=== PATIENT | female | born 1995 | race Caucasian/White ===

== ENCOUNTER 2020-09-11 15:21 | Inpatient (IN) | payer BC, SELFPAY ==
[2020-09-11] VITALS (15 sets, daily range): BP systolic 132–174; BP diastolic 64–108; PULSE 76–85; RESP 16–20; TEMP 36.4–37.6; O2SAT 97–100; BMI 45.2
--- NOTE | ~2020-09-11 | XR_ITS ---
EXAMINATION: 09/14/2020 14:57 DATE: 09/14/2020 15:30 CDT INDICATION: Cholecystectomy, intraoperative cholangiogram TECHNIQUE: Intraoperative cholangiogram with a single contrast run(s) provided for review. 18 seconds of fluoroscopy. 114 images. FINDINGS: There is cannulation and contrast administration into the cystic duct remnant. The common bile duct is mildly prominent, although no obstructing filling defect is seen. There is no discrete filling defect in the common bile duct to suggest common bile duct stone. Contrast flows freely into the duodenum. There is normal filling of the pancreatic duct. IMPRESSION: 1. Patent cystic duct remnant and common bile duct, without common bile duct stone. Reviewed, dictated and finalized at location B. IMPRESSION: 1. Patent cystic duct remnant and common bile duct, without common bile duct s tone.
--- NOTE | ~2020-09-11 | US_ITS ---
US abdomen limited INDICATION: Abdominal pain PROCEDURE: Realtime right upper abdominal ultrasound. COMPARISON: No prior studies for comparison. FINDINGS: The pancreas is normal without focal mass or pancreatic ductal dilation. Liver echotexture is normal without focal mass or intrahepatic biliary dilatation. There is normal directional flow i n the portal vein. There are gallstones with gallbladder wall thickening. Common bile duct measures 9 mm. No sonograph ic Reynoso's sign. IMPRESSION: 1: Cholelithiasis with gallbladder wall thickening and mild biliary dilatation. Findings compatible w ith cholecystitis. Clinically correlate. Reviewed, dictated and finalized at location B. IMPRESSION: 1: Cholelithiasis with gallbladder wall thickening and mild biliary dilatation. Findings compatible with cholecystitis. Clinically correlate.
--- NOTE | ~2020-09-11 | MR_ITS ---
EXAMINATION: MR MRCP wo/w con/w 3D wo ind DATE: 09/12/2020 14:35 INDICATION: Pancreatitis. TECHNIQUE: Magnetic resonance imaging (MRI) of the abdomen was performed without and with 20 mL Multi Sebastián intravenous contrast. Sequences included coronal T2-weighted FS FSE, coronal T2-weighted FSE, a xial T1-weighted LAVA, coronal FS FIESTA, axial dual-echo T1-weighted SPGR, coronal lava-FLEX, sagitt al T2-weighted FSE, axial T2-weighted FSE, and axial DWI. Thick-slab T2-weighted FSE images were obta ined for magnetic resonance cholangiopancreatography (MRCP). Maximum intensity projection 3-D reconst ructions of the volumetric data were created by the technologist. Postcontrast sequences included cor onal LAVA-flex and time course of axial T1-weighted LAVA. COMPARISON: Ultrasound 09/12/2020, CT abdomen and pelvis 09/11/2020 FINDINGS: ABDOMEN MRI: There is mild intrahepatic biliary duct dilatation. There are gallstones in the gallblad amelia, which is distended. Gallbladder wall thickening is noted. The spleen is normal. There is mild ed jeffry in the retroperitoneum centered at the pancreas, consistent with acute interstitial pancreatitis. There is a 7 mm cystic lesion in the tail of the pancreas. The adrenal glands and left kidney are no rmal. There are cysts in right kidney measuring up to 12 mm. There are no dilated loops of bowel. The re are no pathologically enlarged lymph nodes. There is trace pelvic ascites. ABDOMEN MRCP: The common duct is dilated to 12 mm. IMPRESSION: 1. Intrahepatic and extrahepatic biliary duct dilatation. No visible choledocholithiasis. 2. Distended gallbladder with gallstones and gallbladder wall thickening, consistent with acute gisel cystitis. 3. Acute interstitial pancreatitis. Reviewed, dictated and finalized at location A. IMPRESSION: 1. Intrahepatic and extrahepatic biliary duct dilatation. No visible choledocho lithiasis. 2. Distended gallbladder with gallstones and gallbladder wall thickening, consi stent with acute cholecystitis. 3. Acute interstitial pancreatitis.
--- NOTE | ~2020-09-11 | CT_ITS ---
EXAMINATION: CT abdomen pelvis w con DATE: 09/11/2020 19:45 INDICATION: Upper abdominal pain. Nausea. Diarrhea. TECHNIQUE: Computed tomography (CT) of the abdomen and pelvis was performed with 100 mL Omnipaque 350 intravenous contrast. Automated exposure control and iterative reconstruction technique were employe d. The dose-length product was 1429.70 mGy-cm. COMPARISON: None. FINDINGS: The visualized portions of the lung bases are clear without pneumonia or pleural effusion. The heart size is normal. No pericardial effusion. There is moderate intrahepatic biliary duct dilata tion. The common duct is dilated to 10 mm. There are gallstones in the gallbladder, which is normal i n size. There is fat stranding around the pancreas, consistent with acute interstitial pancreatitis. The spleen, adrenal glands, and left kidney are normal. There are cysts in right kidney measuring up to 12 mm. There are no dilated loops of bowel. The appendix is normal. There are no pathologically en larged lymph nodes. There is no free intraperitoneal fluid. There is an umbilical hernia containing f at. There is mild thoracolumbar spondylosis. IMPRESSION: 1. Acute interstitial pancreatitis. 2. Intrahepatic and extrahepatic biliary duct dilatation. 3. Cholelithiasis. Reviewed, dictated and finalized at location A.
[2020-09-11 16:42] LABS: Basophils Percent Auto 0.4 % (0.2-1.2); Eosinophils Absolute Auto 0.1 K/mm3 (0-0.3); Eosinophils Percent Auto 0.7 % (0-4.4); Hematocrit 38.2 % (37.0-47.0); Hemoglobin 12.3 g/dL (12.0-15.0); Immature Granulocyte Absolute 0.02 K/mm3 (0.00-0.031); Immature Granulocyte Percent A 0.3 % (0-0.5); Lymphocytes Absolute Auto 1.72 K/mm3 (0.9-3.2); Lymphocytes Percent Auto 24.4 % (18.3-44.2); Mean Corpuscular HGB Conc 32.2 g/dl (32-36); Mean Platelet Volume 10.1 fl (7.4-10.4); Monocytes Absolute Auto 0.4 K/mm3 (0.1-0.6); Monocytes Percent Auto 5.5 % (2.6-8.5); Neutrophils Absolute Auto 4.8 K/mm3 (1.3-6.7); Neutrophils Percent Auto 68.7 % (45.5-73.1); Platelet Count Result 223 k/mm3 (150-375); Red Blood Count 4.39 M/mm3 (4.2-5.4)
[2020-09-11 16:54] LABS: Alanine Aminotransferase 506 U/L (4-35); Albumin Level 4.1 g/dL (3.5-5.1); Alkaline Phosphatase 269 U/L (38-126); Anion Gap 7 mmol/L (8-16); Aspartate Amino Transferase 296 U/L (14-36); Bilirubin,Total 4.7 mg/dL (0.2-1.3); Blood Urea Nitrogen 10 mg/dL (7-17); Calcium 9.1 mg/dL (8.4-10.2); Carbon Dioxide 26 mmol/L (22-30); Chloride 105 mmol/L (98-107); Estimated Glomerular Filt Rate > 60; Glucose 150 mg/dL (65-105); Potassium 3.5 mmol/L (3.4-5.0); Sodium 138 mmol/L (137-145)
[2020-09-11 17:44] LABS: Lipase 11875 U/L (23-300)
[2020-09-11 19:45] LABS: Add Urine Microscopic? YES; Appearance Urine Clear (Clear); Bacteria Urine Trace /hpf; Bilirubin Urine 2+ (Negative); Blood Urine 1+ (Negative); Color Urine Amber (Yellow); Glucose Urine UA Negative (Negative); Ketones Urine Negative (Negative); Leukocyte Esterase Ur Negative LEU/UL (Negative); Mucus Urine Heavy /lpf; Nitrate Urine Negative (Negative); Protein Urine 1+ mg/dL (Negative); RBC Urine 0-2 /hpf (0-2); Squamous Epithelial Cell Urine Many /hpf (Few)
[2020-09-11 19:47] LABS: Specific Grav Ur 1.031 (1.001-1.035)
[2020-09-11] MEDS: ONDANSETRON INJ 4 MG/2 ML VIAL IV PUSH (19:56)
[2020-09-11] MEDS: MORPHINE SULFATE (*CRX) 4 MG/ML INJ IV PUSH (19:58)
[2020-09-11] MEDS: SODIUM CHLORIDE 0.9% IV 1,000 ML 999 ML IV CONT (20:00)
--- NOTE | 2020-09-11 20:29 | ED.GENADULT ---
HPI - General Adult General Chief complaint: Abdominal Pain Stated complaint: abd pain, n/d few weeks Time Seen by Provider: 09/11/20 19:13 History of Present Illness HPI narrative: Patient is a 25-year-old female who presents ER with epigastric pain. Ongoing for the last several days. Worse with eating and drinking. Associate with nausea and vomiting but no diarrhea. Noticed today that her urine was becoming darker in color. No difficulty urinating or having burning/frequent urination. Denies fevers or chills or sweats. No alleviating factors. Believes she is fully immunized. No IV drug use. Related Data Home Medications Medication Instructions Recorded Confirmed norethindrone-e.estradiol-iron tablet 09/11/20 [Blisovi 24 Fe] Allergies Allergy/AdvReac Type Severity Reaction Status Date / Time No Known Allergies Allergy Verified 09/11/20 19:54 Review of Systems Review of Systems: All systems reviewed & are unremarkable except as noted in HPI and below Constitutional: Constitutional: Denies chills, Denies fever(s) and Denies weakness Cardiovascular: Cardiovascular: Denies chest pain and Denies radiating jaw, neck or arm pain Respiratory: Respiratory: Denies cough, Denies dyspnea and Denies wheezing Gastrointestinal: Gastrointestinal: Reports abdominal pain, Denies constipation, Denies diarrhea, Reports nausea and Reports vomiting Genitourinary: Genitourinary: Denies nocturia and Denies dysuria Comments: Discolored urine PMFSH Past Medical History Medical History (Updated 09/11/20 @ 21:29 by Chema Jerome MD) Healthy female adult Surgical History Surgical History (Updated 09/11/20 @ 20:31 by Chema Jerome MD) No pertinent past surgical history Social History Social History Gender identity (if verbalized by the patient): Female Exam Narrative: Exam Narrative: GENERAL: Well-appearing, well-nourished, and in no acute distress. HEAD: Normocephalic, atraumatic. EYES: PERRL and EOMI. scleral icterus CHEST: Clear to auscultation. No respiratory distress. HEART: Regular rate and rhythm. Normal peripheral pulses. ABDOMEN: Soft, mild right upper quadrant and epigastric tenderness without guarding, nondistended. EXTREMITIES: Normal range of motion. No edema. SKIN: Warm, dry, very faint jaundice. NEURO: Alert and oriented x3. PSYCH: Normal mood and affect. Course Course Emergency Course: Admit to hospitalist service. General surgery and GI consulted and will see the patient. Patient without elevation white blood cell count and no gallbladder wall thickening or pericholecystic fluid so antibiotics will not be started at this time. NPO, may require ERCP tomorrow. Vital Signs Vital signs: Vital Signs Temperature 97.6 F 09/11/20 17:09 Pulse Rate 85 09/11/20 17:09 Respiratory Rate 18 09/11/20 17:09 Blood Pressure 151/104 H 09/11/20 17:09 Pulse Oximetry 97 09/11/20 17:09 Temperature 99.6 F 09/11/20 20:55 Pulse Rate 76 09/11/20 20:31 Respiratory Rate 16 09/11/20 20:31 Blood Pressure 143/93 H 09/11/20 20:31 Pulse Oximetry 100 09/11/20 20:55 Medical Decision Making Vital Signs Vital Signs: Vital Signs Temperature 97.6 F 09/11/20 17:09 Pulse Rate 85 09/11/20 17:09 Respiratory Rate 18 09/11/20 17:09 Blood Pressure 151/104 H 09/11/20 17:09 Pulse Oximetry 97 09/11/20 17:09 Temperature 99.6 F 09/11/20 20:55 Pulse Rate 76 09/11/20 20:31 Respiratory Rate 16 09/11/20 20:31 Blood Pressure 143/93 H 09/11/20 20:31 Pulse Oximetry 100 09/11/20 20:55 Lab Data Result diagrams: 09/11/20 16:34 09/11/20 16:34 Labs: Lab Results 09/11/20 09/11/20 09/11/20 Range/Units 16:34 16:34 19:30 WBC 7.0 (4.5-10.0) K/mm3 RBC 4.39 (4.2-5.4) M/mm3 Hgb 12.3 (12.0-15.0) g/dL Hct 38.2 (37.0-47.0) % MCV 87.0 (80-100) fl MCH 28.0 (26-34) pg MCHC 32.2 (32-36) g/d
--- NOTE | 2020-09-11 23:00 | PM.IMHP ---
H&P: HPI History of Present Illness Date/Time: 09/11/20 23:00 Chief Complaint: Epigastric abdominal pain over the past 2 weeks+ Narrative: This is a previously healthy morbidly obese 25-year-old female who presented to the hospital with a complaint of intermittent epigastric pain over the past 2 weeks. Patient has noticed that she has had worsening epigastric pain that seemed to radiate laterally especially after eating a meal. Today her pain worsened which prompted her to come to the hospital for evaluation. She reports having nausea and vomiting over a week ago but has not had any nausea or vomiting since then. She denies any fevers, chills, chest pain, cough, dysuria, hematuria, diarrhea, or rectal bleeding. The patient was evaluated emergency room this evening and found to have acute pancreatitis on her CT abdomen pelvis. She has no previous history of acute pancreatitis and denies any excessive alcohol intake. Patient's lab results were concerning for cholestatic transaminitis. She has no previous history of gallbladder disease. ER provider has consulted gastroenterology who will evaluate in a.m. on my encounter with the patient tonight she states that her abdominal pain is controlled at this time when she does not move much. She denies any other significant symptoms at this time. Review of Systems Review of Systems: All systems reviewed & are unremarkable except as noted in HPI and below PMFSH Past Medical History Medical History Abdominal pain Cholecystitis Gallstone pancreatitis Healthy female adult Surgical History Surgical History History of sinus surgery History of tonsillectomy Family History Family History Sibling Brain tumor Grandparent Gallbladder disease Social History Social History Smoking status: Never smoker Alcohol intake: current Alcohol use details: Occasional/social. Not daily use. 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 [employer] Gender identity (if verbalized by the patient): Female Sexual Orientation (if Verbalized by the Patient): Straight or Heterosexual Spiritual care concerns: No Meds Home Medications and Allergies Home Medications Medication Instructions Recorded Confirmed Type norethindrone-e.estradiol-iron 1 tablet PO DAILY 09/11/20 09/12/20 History [Blisovi 24 Fe] Allergies Allergy/AdvReac Type Severity Reaction Status Date / Time No Known Allergies Allergy Verified 09/11/20 19:54 Vital Signs Vital Signs - 24 hr 09/11/20 17:09 09/11/20 19:18 09/11/20 19:28 Temperature 36.4 C 37.1 C Pulse Rate 85 78 Respiratory Rate 18 18 Blood Pressure 151/104 H 174/105 H Pulse Oximetry 97 100 99 09/11/20 19:30 09/11/20 19:32 09/11/20 20:01 Temperature Pulse Rate 78 Respiratory Rate 18 Blood Pressure 161/94 H Pulse Oximetry 100 100 100 09/11/20 20:02 09/11/20 20:15 09/11/20 20:18 Temperature Pulse Rate 83 Respiratory Rate 16 Blood Pressure 156/94 H 169/64 H Pulse Oximetry 100 100 100 09/11/20 20:28 09/11/20 20:30 09/11/20 20:31 Temperature 37.6 C Pulse Rate 76 Respiratory Rate 16 Blood Pressure 143/93 H Pulse Oximetry 97 100 09/11/20 20:55 Temperature 37.6 C Pulse Rate Respiratory Rate Blood Pressure Pulse Oximetry 100 Exam Const: General: cooperative, alert and awake Nutritional Appearance: obese morbidly obese Orientation/consciousness: patient oriented x3 HENMT: Head: normal to inspection General nose exam: Normal external nose present Face and sinus: normal facial exam Mouth: Yes Normal ora
--- NOTE | 2020-09-11 23:15 | ADMGEN ---
This patient, Irma Monae, was admitted to [facility] Surg Room 301-01. Patient/family oriented to hospital policies and general routines including ID bracelet, bed and alarms, visiting hours, pain management, procedures, bathroom and other care routines, personal items, smoking policy, room service/diet, and visiting hours. Information on how to activate the Rapid Response Team has been discussed. Patient/Family are encouraged to report perceived risks to care and to ask questions if they do not understand what they are told or what they should do.
[2020-09-11] MEDS: SODIUM CHLORIDE 0.9% IV 1,000 ML 125 ML IV CONT (23:38)
[2020-09-12] MEDS: MORPHINE SULFATE (*CRX) 4 MG/ML INJ IV PUSH (00:36)
[2020-09-12 06:00] VITALS: BP 128/77; PULSE 87; RESP 20; TEMP 37.2; O2SAT 98
[2020-09-12 06:39] LABS: Basophils Percent Auto 0.7 % (0.2-1.2); Eosinophils Absolute Auto 0.1 K/mm3 (0-0.3); Eosinophils Percent Auto 1.4 % (0-4.4); Hematocrit 35.5 % (37.0-47.0); Hemoglobin 11.5 g/dL (12.0-15.0); Immature Granulocyte Absolute 0.01 K/mm3 (0.00-0.031); Immature Granulocyte Percent A 0.2 % (0-0.5); Lymphocytes Absolute Auto 2.05 K/mm3 (0.9-3.2); Lymphocytes Percent Auto 35.6 % (18.3-44.2); Mean Corpuscular HGB Conc 32.4 g/dl (32-36); Mean Corpuscular Hemoglobin 28.5 pg (26-34); Mean Corpuscular Volume 88.1 fl (80-100); Mean Platelet Volume 10.3 fl (7.4-10.4); Monocytes Absolute Auto 0.5 K/mm3 (0.1-0.6); Monocytes Percent Auto 8.7 % (2.6-8.5); Neutrophils Absolute Auto 3.1 K/mm3 (1.3-6.7); Neutrophils Percent Auto 53.4 % (45.5-73.1); Platelet Count Result 207 k/mm3 (150-375); Red Blood Count 4.03 M/mm3 (4.2-5.4); Red Cell Distribution Width 13.2 % (11.5-14.5); White Blood Count 5.8 K/mm3 (4.5-10.0)
[2020-09-12] MEDS: SODIUM CHLORIDE 0.9% IV 1,000 ML 125 ML IV CONT (06:42)
[2020-09-12 06:50] LABS: Alanine Aminotransferase 478 U/L (4-35); Alkaline Phosphatase 261 U/L (38-126)
[2020-09-12 06:53] LABS: Cholesterol 283 mg/dL (0-200); HDL Direct 102 mg/dL; Triglycerides 143 mg/dL (<150)
[2020-09-12 06:54] LABS: Anion Gap 4 mmol/L (8-16); Blood Urea Nitrogen 8 mg/dL (7-17); Calcium 8.5 mg/dL (8.4-10.2); Carbon Dioxide 25 mmol/L (22-30); Chloride 108 mmol/L (98-107); Estimated CRCL calculation 120 ml/min; Estimated Glomerular Filt Rate > 60; Glucose 82 mg/dL (65-105); Magnesium 1.7 mg/dL (1.6-2.3); Potassium 3.8 mmol/L (3.4-5.0); Sodium 137 mmol/L (137-145)
[2020-09-12 07:04] LABS: LDL Cholesterol Direct 118 mg/dL
[2020-09-12 07:28] LABS: Lipase 6552 U/L (23-300)
[2020-09-12] MEDS: ENOXAPARIN 40 MG/0.4 ML SYRINGE SUB-Q (08:59)
[2020-09-12 10:00] VITALS: PULSE 85; O2SAT 97
--- NOTE | 2020-09-12 11:55 | PM.CNGS ---
Assessment and Plan Assessment and plan (1) Acute pancreatitis: Qualifiers: Acute pancreatitis complication: no infection or necrosis Pancreatitis type: biliary Qualified Code(s): K85.10 - Biliary acute pancreatitis without necrosis or infection Code(s): K85.90 - Acute pancreatitis without necrosis or infection, unspecified Status: Acute Assessment and Plan: CT scan and ultrasound reviewed and discussed in detail with the patient and her mother. She has evidence of acute pancreatitis with intrahepatic and extrahepatic biliary ductal dilatation with cholelithiasis. She also was found to have bilirubinuria and transaminitis on labs. GI has been consulted and we will await their recommendations. This appears to be most likely acute biliary pancreatitis. She has no history of alcohol abuse, triglycerides are normal, and she is not taking any medications. We agree to continue the IV fluids, analgesics, and bowel rest to treat the pancreatitis. Her lipase has come down to 6,552 today and she is already clinically improving. With the above findings, there is concern for choledocholithiasis as well. MRCP planned for today. She may need an ERCP if there is evidence of choledocholithiasis. I discussed with her that we would recommend proceeding with a laparoscopic cholecystectomy to avoid future serious complications of the cholelithiasis and recurrent pancreatitis. Due to her morbid obesity, she would be at a higher risk for complications with surgery, therefore timing/planning of surgery will be decided after Dr. Lipscomb's evaluation. We would not plan scheduling surgery until at least after the pancreatitis has resolved and it has been sorted out if she will need an ERCP. Description of the procedure, risks, benefits, indications, expected outcomes, and expected recovery were discussed with the patient in detail. All questions were answered. Thank you for allowing us to see the patient in consultation. We will continue to follow along with you and timing of surgery will depend on how the patient progresses. (2) Cholelithiasis: Code(s): K80.20 - Calculus of gallbladder without cholecystitis without obstruction Status: Acute Assessment and Plan: Gallstones noted on CT and ultrasound this morning. See plan above. (3) Transaminitis: Code(s): R74.01 - Elevation of levels of liver transaminase levels Status: Acute Assessment and Plan: Elevated LFTs on admission, which does raise the concern of choledocholithiasis. GI has been consulted and has ordered an MRCP for today. Will await GI's recommendations and MRCP results. May need ERCP if there is evidence of gallstones in the common bile duct. Continue to trend labs. I have also asked the nurse to call lab and see why total bilirubin and AST were not resulted on morning labs. (4) Morbid obesity with BMI of 45.0-49.9, adult: Code(s): E66.01 - Morbid (severe) obesity due to excess calories; Z68.42 - Body mass index [BMI] 45.0-49.9, adult Status: Acute Assessment and Plan: Encouraged healthy lifestyle changes to promote weight loss. Additional Plan I discussed the patient's case and plan of care with Dr. Lipscomb. History of Present Illness Consult details Consult date: 09/12/20 Reason for consult: gallstones (Acute pancreatitis, suspected to be biliary pancreatitis) Requesting physician: Chema Jerome MD Narrative: This is a 25-year-old obese female who was referred to the ER from an urgent care for evaluation of upper abdominal pain. She reports having intermittent mild epigastric abdominal pain for the past 2 weeks. She reports also having intermittent nausea and diarrhea over the past week, but no vomiting or fevers. Her pain seemed aggravated by eating. She states that yesterday her epigastric abdominal pain became more severe and prompted her to go to an urgent care for evaluation. They then sent her to the ER for further w
[2020-09-12 13:16] LABS: Aspartate Amino Transferase 300 U/L (14-36); Bilirubin,Total 5.3 mg/dL (0.2-1.3)
--- NOTE | 2020-09-12 13:29 | PM.IMPN ---
Progress Note: A&P Assessment and Plan (1) Acute pancreatitis: Qualifiers: Acute pancreatitis complication: no infection or necrosis Pancreatitis type: biliary Qualified Code(s): K85.10 - Biliary acute pancreatitis without necrosis or infection Code(s): K85.90 - Acute pancreatitis without necrosis or infection, unspecified Status: Acute Assessment and Plan: Lipase 43300 upon presentation. abdomen/pelvis showed acute interstitial pancreatitis with associated intrahepatic and extrahepatic biliary duct dilatation. This is likely related to cholelithiasis. Triglycerides within normal limits. She is not on any medications. Denies excessive alcohol use. Lipase improved to 6552 today. Epigastric pain has improved. General surgery and Gastroenterology have been consulted. Input is appreciated. Planning for MRCP today. Consider ERCP if evidence of choledocholithiasis, which is considered based on transaminitis. Continue NPO diet. Continue IV fluid rehydration while NPO. Analgesics and antiemetics as needed Trend lipase (2) Cholelithiasis: Code(s): K80.20 - Calculus of gallbladder without cholecystitis without obstruction Status: Acute Assessment and Plan: Right upper quadrant ultrasound shows cholelithiasis with gallbladder wall thickening and mild biliary dilatation. Planning for MRCP today. Plan as above. She will likely require laparoscopic cholecystectomy. General surgery following input appreciated. (3) Transaminitis: Code(s): R74.01 - Elevation of levels of liver transaminase levels Status: Acute Assessment and Plan: Likely related to cholelithiasis versus possible choledocholithiasis. And ALP minimally improved today. Slight increase in AST and total bilirubin. No jaundice. MRCP today. ERCP will be considered based on results Trend LFTs (4) Morbid obesity with BMI of 45.0-49.9, adult: Code(s): E66.01 - Morbid (severe) obesity due to excess calories; Z68.42 - Body mass index [BMI] 45.0-49.9, adult Status: Acute Assessment and Plan: Will discuss importance of healthy lifestyle and dietary changes to promote weight loss. (5) Hypercholesteremia: Code(s): E78.00 - Pure hypercholesterolemia, unspecified Status: Acute Assessment and Plan: Lipid panel evaluated in light of pancreatitis which showed a total cholesterol of 283. She has good HDL levels at 102. LDL is desirable at <130. Triglycerides within normal limits. She will need outpatient follow-up with PCP. Subjective Date/time seen: 09/12/20 13:29 Interval history: Date of service: 09/12/2020 Irma Monae is a healthy 25-year-old female who is seen in follow-up for pancreatitis with intrahepatic and extrahepatic biliary duct dilation with cholelithiasis. She is doing well at this time. She is endorsing epigastric pain rated approximately 5-6/10. She reports sharp pain in the epigastric region but occurs intermittently. She feels a bit nauseous. She has not had any episodes of emesis today. She was having diarrhea yesterday but has not had any episodes today. She has a mild headache. She denies shortness of breath, cough, chest pain, or palpitations. Denies urinary symptoms. Review of Systems Review of Systems: All systems reviewed & are unremarkable except as noted in HPI and below Exam Narrative: Exam Narrative: is an obese, well-appearing 25-year-old female who is lying supine in bed. She appears comfortable and is in NARD. Neuro: awake, alert and oriented x4, speech clear, no focal neuro deficits noted HEENMT: normocephalic, atraumatic, EOMI, sclerae anicteric, moist oral mucosa, tongue midline, nares patent Neck: supple, no lymphadenopathy Respiratory: clear to auscultation bilaterally, nonlabored breathing Cardio: regular rate, regular rhythm with S1-S2 Abdomen: Obese, normoactive bowel
[2020-09-12 14:00] VITALS: BP 140/85; PULSE 73; RESP 18; TEMP 37.2; O2SAT 99
--- NOTE | 2020-09-12 17:10 | WPDGICN ---
Assessment and Plan Assessment and plan (1) Gallstone pancreatitis: Code(s): K85.10 - Biliary acute pancreatitis without necrosis or infection Status: Acute Assessment and Plan: MRCP reviewed and no choledocholithiasis, mild intrahepatic biliary duct dilatation. There are gallstones in the gallbladder, which is distended. Gallbladder wall thickening is noted. The spleen is normal. There is mild edema in the retroperitoneum centered at the pancreas, consistent with acute interstitial pancreatitis. only liquid as tolerated for now surgery on board, no stones in bile duct or strictures, no need of ERCP. Eventually will need cholecystectomy (2) Cholecystitis: Code(s): K81.9 - Cholecystitis, unspecified Status: Acute Assessment and Plan: on abx, surgery on board (3) Cholelithiasis: Code(s): K80.20 - Calculus of gallbladder without cholecystitis without obstruction Status: Acute (4) Transaminitis: Code(s): R74.01 - Elevation of levels of liver transaminase levels Status: Acute Assessment and Plan: continue to monitor, will check also hepatitis panel only etoh social (5) Morbid obesity with BMI of 45.0-49.9, adult: Code(s): E66.01 - Morbid (severe) obesity due to excess calories; Z68.42 - Body mass index [BMI] 45.0-49.9, adult Status: Acute (6) Abdominal pain: Code(s): R10.9 - Unspecified abdominal pain Status: Acute Assessment and Plan: from pancreatitis GI Consult Note Consult date/time: 09/12/20 17:10 Reason for consult: gallstone pancreatitis HPI: Irma Monae is a 25 year old female here with intermittent epigastric pain over the past 2 weeks but day of admission much worse, epigastric pain with radiation laterally especially after eating a meal. She also was nauseous and came to ER. CT abdomen pelvis reviewed, showed acute interstitial pancreatitis, intrahepatic and extrahepatic biliary duct dilatation and cholelithiasis. She denies previous history of pancreatitis or liver disease, only socially drinker. Also had elevated bili 4.7, transaminases 200-500's, lipase 11k. Admitted to hospital and feeling better after pain meds. Pain has improved, less nauseous and she is starving now. Review of Systems Constitutional: Constitutional: Denies chills Eyes: Eyes: Denies blurry vision ENT: Reports Normal hearing present Cardiovascular: Cardiovascular: Denies chest pain Respiratory: Respiratory: Denies dyspnea Gastrointestinal: Gastrointestinal: Reports abdominal pain and Reports nausea Genitourinary: Genitourinary: Denies hematuria Musculoskeletal: Musculoskeletal: Denies neck pain Integumentary/Breasts: Skin/Breast: Denies dry skin Neurologic: Denies headache(s) Psychiatric: Psychiatric: Denies behavioral changes [facility] Past Medical History Medical History Healthy female adult Surgical History Surgical History History of sinus surgery History of tonsillectomy Family History Family History Sibling Brain tumor Grandparent Gallbladder disease Social History Social History Smoking status: Never smoker Alcohol intake: current Alcohol use details: Occasional/social. Not daily use. 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
[2020-09-12] MEDS: SODIUM CHLORIDE 0.9% IV 1,000 ML 100 ML IV CONT (18:00)
[2020-09-12 22:00] VITALS: BP 138/83; PULSE 77; RESP 20; TEMP 36.3; O2SAT 100
[2020-09-12] MEDS: ONDANSETRON INJ 4 MG/2 ML VIAL IV PUSH (23:53)
[2020-09-13] MEDS: SODIUM CHLORIDE 0.9% IV 1,000 ML 100 ML IV CONT (04:53)
[2020-09-13 06:00] VITALS: BP 126/67; PULSE 70; RESP 20; TEMP 36.8; O2SAT 99
[2020-09-13] MEDS: ENOXAPARIN 40 MG/0.4 ML SYRINGE SUB-Q (07:49)
[2020-09-13 07:58] LABS: Alanine Aminotransferase 549 U/L (4-35); Albumin Level 3.8 g/dL (3.5-5.1); Alkaline Phosphatase 273 U/L (38-126); Anion Gap 7 mmol/L (8-16); Aspartate Amino Transferase 321 U/L (14-36); Bilirubin,Total 2.6 mg/dL (0.2-1.3); Blood Urea Nitrogen 7 mg/dL (7-17); Calcium 8.8 mg/dL (8.4-10.2); Carbon Dioxide 26 mmol/L (22-30); Chloride 104 mmol/L (98-107); Estimated CRCL calculation 108 ml/min; Estimated Glomerular Filt Rate > 60; Glucose 75 mg/dL (65-105); Lipase 1968 U/L (23-300); Magnesium 1.7 mg/dL (1.6-2.3); Sodium 137 mmol/L (137-145)
[2020-09-13 08:42] LABS: Hepatitis B Surface Antigen Negative (Negative)
[2020-09-13 08:47] LABS: HAV RESULT Negative (Negative); Hepatitis B Core IgM Result Negative (Negative)
[2020-09-13 08:59] LABS: Hepatitis C Virus Antibody Negative (Negative)
--- NOTE | 2020-09-13 11:31 | PM.PNGS ---
Progress Note: A&P Assessment and Plan (1) Acute pancreatitis: Qualifiers: Acute pancreatitis complication: no infection or necrosis Pancreatitis type: biliary Qualified Code(s): K85.10 - Biliary acute pancreatitis without necrosis or infection Code(s): K85.90 - Acute pancreatitis without necrosis or infection, unspecified Status: Acute Assessment and Plan: Lipase trending down. Patient clinically improving. Continue clear liquids. Continue IV fluids and analgesics as needed. Monitor labs. (2) Cholelithiasis: Code(s): K80.20 - Calculus of gallbladder without cholecystitis without obstruction Status: Acute Assessment and Plan: Ultimately, the patient will need a cholecystectomy. Lipase still elevated and no plans for surgery today. Will continue to monitor labs and timing of surgery depends on how the patient progresses. (3) Transaminitis: Code(s): R74.01 - Elevation of levels of liver transaminase levels Status: Acute Assessment and Plan: LFTs trending down today. MRCP showed no gallstones in bile duct. Could have passed a stone. No plans for ERCP. Continue to trend labs. (4) Morbid obesity with BMI of 45.0-49.9, adult: Code(s): E66.01 - Morbid (severe) obesity due to excess calories; Z68.42 - Body mass index [BMI] 45.0-49.9, adult Status: Acute Assessment and Plan: Increases risks of surgery. Additional Plan I discussed the plan of care with Dr. Lipscomb. Subjective Subjective Date/Time Seen: 09/13/20 10:31 Patient reports: feels better, pain is less and tolerating liquids well Interval history: Patient reports feeling better today. Denies any abdominal pain this morning. She had an episode of nausea overnight without vomiting, which has since subsided. Tolerating clear liquids. No other complaints at this time. Review of Systems Review of Systems: All systems reviewed & are unremarkable except as noted in HPI and below Exam Const: General: no acute distress, alert and awake Nutritional Appearance: obese morbidly obese GI: Inspection: non-distended and obesity GI Palp: Yes Soft to palpation, No Tenderness to palpation present (GI) and No Guarding due to palpation present (GI) Auscultation: normal bowel sounds Neuro: General: moves all extremities and no focal motor deficits Extrem: General: no clubbing, cyanosis or edema Psych: Mental Status: mental status grossly normal Insight: Good insight present (Psych) Judgement: Good judgement present (Psych) Objective Data Vital Signs Vital Signs: Vital Signs - 24 hr 09/12/20 14:00 09/12/20 22:00 09/13/20 06:00 Temperature 98.9 F 97.3 F L 98.2 F Pulse Rate 73 77 70 Respiratory Rate 18 20 20 Blood Pressure 140/85 138/83 126/67 Pulse Oximetry 99 100 99 Intake/Output Intake/Output: Intake & Output 09/10/20 09/11/20 09/12/20 09/13/20 23:59 23:59 23:59 23:59 Intake Total 1000 2390 1340 Output Total 580 450 Balance 1000 1810 890 Meds/Results Medications: Active Medications Generic Name Dose Route Start Last Admin Trade Name Freq PRN Reason Stop Dose Admin Acetaminophen 650 mg 09/13/20 09:01 Acetaminophen 325 Mg Tablet PO Q4H PRN Pain 1-3 Enoxaparin Sodium 40 mg 09/12/20 09:00 09/13/20 07:49 Enoxaparin 40 Mg/0.4 Ml Syringe SUB-Q 40 mg DAILY TAMMY Administration Sodium Chloride 1,000 mls @ 100 mls/hr 09/11/20 21:10 09/13/20 04:53 Normal Saline Iv IV CONT 100 mls/hr .Q10H TAMMY Administration Piperacillin/Tazobactam/Dextrose 3.375 gm in 50 mls @ 100 mls/hr 09/12/20 18:00 09/13/20 06:46 Zosyn 3.375 Gm/D5w 50ml Pm IVPB Infused Q6H TAMMY Infusion Morphine Sulfate 4 mg 09/11/20 21:09 09/12/20 00:36 Morphine Sulfate (*Crx) 4 Mg/Ml Inj IV PUSH 4 mg Q2H PRN Administration Pain Rated 7-10 Ondansetron HCl 4 mg 09/12/20 23:45 09/12/20 23:53 Ondansetron Inj 4 Mg/2 Ml Vial IV PUSH 4 mg Q4H PRN
--- NOTE | 2020-09-13 13:16 | PM.IMPN ---
Progress Note: A&P Assessment and Plan (1) Acute pancreatitis: Qualifiers: Acute pancreatitis complication: no infection or necrosis Pancreatitis type: biliary Qualified Code(s): K85.10 - Biliary acute pancreatitis without necrosis or infection Code(s): K85.90 - Acute pancreatitis without necrosis or infection, unspecified Status: Acute Assessment and Plan: Lipase [address] abdomen/pelvis showed acute interstitial pancreatitis with associated intrahepatic and extrahepatic biliary duct dilatation. This is likely related to cholelithiasis. Triglycerides within normal limits. She is not on any medications. Denies excessive alcohol use. Lipase improved to 1968 today. Epigastric pain has resolved. General surgery and Gastroenterology have been consulted. Input is appreciated. Continue clear liquid diet. Will discontinue IV fluids as she is tolerating p.o. intake Analgesics and antiemetics as needed Trend lipase (2) Cholelithiasis: Code(s): K80.20 - Calculus of gallbladder without cholecystitis without obstruction Status: Acute Assessment and Plan: Right upper quadrant ultrasound shows cholelithiasis with gallbladder wall thickening and mild biliary dilatation. MRCP performed yesterday showed biliary duct dilatation without any visible choledocholithiasis. Also showed distended gallbladder with wall thickening consistent with acute cholecystitis. She will ultimately require laparoscopic cholecystectomy but unable to performed at this time in light of acute pancreatitis. Will monitor progression. General surgery following and will determine appropriate timing of surgery. (3) Transaminitis: Code(s): R74.01 - Elevation of levels of liver transaminase levels Status: Acute Assessment and Plan: Likely related to cholelithiasis/cholecystitis. Total bilirubin has improved. LFTs remain elevated. Hepatitis panel is negative. And ALP minimally improved today. Slight increase in AST and total bilirubin. No jaundice. Trend LFTs Appreciate GI and surgery input (4) Morbid obesity with BMI of 45.0-49.9, adult: Code(s): E66.01 - Morbid (severe) obesity due to excess calories; Z68.42 - Body mass index [BMI] 45.0-49.9, adult Status: Acute Assessment and Plan: Discussed importance of healthy lifestyle and dietary changes to promote weight loss. (5) Hypercholesteremia: Code(s): E78.00 - Pure hypercholesterolemia, unspecified Status: Acute Assessment and Plan: Lipid panel evaluated in light of pancreatitis which showed a total cholesterol of 283. She has good HDL levels at 102. LDL is desirable at <130. Triglycerides within normal limits. She will need outpatient follow-up with PCP. Subjective Date/time seen: 09/13/20 13:16 Interval history: Date of service: 09/13/2020 Irma Monae is a healthy 25-year-old female who is seen in follow-up for pancreatitis with intrahepatic and extrahepatic biliary duct dilation with cholelithiasis. She is feeling well today. She is not having any abdominal pain. No nausea or vomiting. She is tolerating clear liquids. She has having loose bowel movements. Denies abdominal cramping or bloating. She denies shortness breath, cough chest pain, or palpitations. No dizziness, lightheadedness, weakness. She is in good spirits. She has no additional concerns at this time. Review of Systems Review of Systems: All systems reviewed & are unremarkable except as noted in HPI and below Exam Narrative: Exam Narrative: is an obese, well-appearing 25-year-old female who is lying supine in bed. She appears comfortable and is in NARD. Neuro: awake, alert and oriented x4, speech clear, no focal neuro deficits noted HEENMT: normocephalic, atraumatic, EOMI, sclerae anicteric, moist oral mucosa, tongue midline, nares patent Neck: supple, no ly
[2020-09-13 14:00] VITALS: BP 148/90; PULSE 87; RESP 20; TEMP 36.8; O2SAT 99
--- NOTE | 2020-09-13 17:43 | WPDGIPROGNO ---
Progress Note: A&P Assessment and Plan (1) Gallstone pancreatitis: Code(s): K85.10 - Biliary acute pancreatitis without necrosis or infection Status: Acute Assessment and Plan: MRCP reviewed, intrahepatic and extrahepatic biliary duct dilatation. No visible choledocholithiasis, distended gallbladder with gallstones and gallbladder wall thickening, consistent with acute cholecystitis. Acute interstitial pancreatitis. surgery eventually will do cholecystectomy most likely she passed stone as her bilirubin is coming down and she is feeling much better (2) Cholecystitis: Code(s): K81.9 - Cholecystitis, unspecified Status: Acute Assessment and Plan: will be removed by surgery medical management (3) Abdominal pain: Code(s): R10.9 - Unspecified abdominal pain Status: Acute (4) Morbid obesity with BMI of 45.0-49.9, adult: Code(s): E66.01 - Morbid (severe) obesity due to excess calories; Z68.42 - Body mass index [BMI] 45.0-49.9, adult Status: Acute (5) Transaminitis: Code(s): R74.01 - Elevation of levels of liver transaminase levels Status: Acute Assessment and Plan: trending down Subjective Date/time seen: 09/13/20 17:43 Interval history: feeling much better, tolerating liquid diet Review of Systems Review of Systems: All systems reviewed & are unremarkable except as noted in HPI and below Exam Const: General: no acute distress, alert and awake Nutritional Appearance: obese morbidly obese Other: obese HENMT: General nose exam: Normal nares present Eyes: General: appearance normal, both eyes and all related structures Neck: Neck: supple Resp: Auscultation: clear to auscultation bilaterally Cardio: Rate: regular rate GI: Inspection: non-distended and obesity GI Palp: Yes Soft to palpation, No Tenderness to palpation present (GI) and No Guarding due to palpation present (GI) Auscultation: normal bowel sounds Skin: General skin exam: normal color Neuro: General: moves all extremities and no focal motor deficits Speech: normal speech Motor exam (neuro): Normal motor muscle tone present throughout Extrem: General: normal to inspection and no clubbing, cyanosis or edema Psych: Mental Status: mental status grossly normal Insight: Good insight present (Psych) Judgement: Good judgement present (Psych) Objective Data Vital Signs Vital Signs: Vital Signs - 24 hr 09/12/20 22:00 09/13/20 06:00 09/13/20 14:00 Temperature 97.3 F L 98.2 F 98.2 F Pulse Rate 77 70 87 Respiratory Rate 20 20 20 Blood Pressure 138/83 126/67 148/90 H Pulse Oximetry 100 99 99 Intake/Output Intake/Output: Intake & Output 09/10/20 09/11/20 09/12/20 09/13/20 23:59 23:59 23:59 23:59 Intake Total 1000 2390 1630 Output Total 580 450 Balance 1000 1810 1180 Meds/Results Medications: Active Medications Generic Name Dose Route Start Last Admin Trade Name Freq PRN Reason Stop Dose Admin Acetaminophen 650 mg 09/13/20 09:01 Acetaminophen 325 Mg Tablet PO Q4H PRN Pain 1-3 Enoxaparin Sodium 40 mg 09/12/20 09:00 09/13/20 07:49 Enoxaparin 40 Mg/0.4 Ml Syringe SUB-Q 40 mg DAILY TAMMY Administration Piperacillin/Tazobactam/Dextrose 3.375 gm in 50 mls @ 100 mls/hr 09/12/20 18:00 09/13/20 12:57 Zosyn 3.375 Gm/D5w 50ml Pm IVPB Infused Q6H TAMMY Infusion Morphine Sulfate 4 mg 09/11/20 21:09 09/12/20 00:36 Morphine Sulfate (*Crx) 4 Mg/Ml Inj IV PUSH 4 mg Q2H PRN Administration Pain Rated 7-10 Ondansetron HCl 4 mg 09/12/20 23:45 09/12/20 23:53 Ondansetron Inj 4 Mg/2 Ml Vial IV PUSH 4 mg Q4H PRN Administration Nausea And Vomiting Radiology Results: ITS Impressions Abdomen/Pelvis CT 09/11/20 19:47 IMPRESSION: 1. Acute interstitial pancreatitis. 2. Intrahepatic and extrahepatic biliary duct dilatation. 3. Cholelithiasis. Abdomen Ultrasound 09/12/20 08:21 IMPRESSION:
[2020-09-13 22:00] VITALS: BP 119/72; PULSE 80; RESP 18; TEMP 36.4; O2SAT 100
[2020-09-14] VITALS (14 sets, daily range): BP systolic 96–159; BP diastolic 52–105; PULSE 58–84; RESP 14–20; TEMP 36.3–36.9; O2SAT 72–100
[2020-09-14 06:13] LABS: Hematocrit 37.9 % (37.0-47.0); Hemoglobin 12.3 g/dL (12.0-15.0); Mean Corpuscular HGB Conc 32.5 g/dl (32-36); Mean Corpuscular Volume 86.1 fl (80-100); Mean Platelet Volume 10.4 fl (7.4-10.4); Platelet Count Result 254 k/mm3 (150-375); Red Cell Distribution Width 12.5 % (11.5-14.5); White Blood Count 5.7 K/mm3 (4.5-10.0)
[2020-09-14 06:47] LABS: Alanine Aminotransferase 622 U/L (4-35); Albumin Level 4.1 g/dL (3.5-5.1); Alkaline Phosphatase 263 U/L (38-126); Anion Gap 6 mmol/L (8-16); Aspartate Amino Transferase 293 U/L (14-36); Bilirubin,Total 1.7 mg/dL (0.2-1.3); Blood Urea Nitrogen 8 mg/dL (7-17); Calcium 9.4 mg/dL (8.4-10.2); Carbon Dioxide 26 mmol/L (22-30); Chloride 106 mmol/L (98-107); Estimated CRCL calculation 120 ml/min; Estimated Glomerular Filt Rate > 60; Glucose 80 mg/dL (65-105); Lipase 763 U/L (23-300); Potassium 3.6 mmol/L (3.4-5.0); Sodium 138 mmol/L (137-145)
[2020-09-14] MEDS: ENOXAPARIN 40 MG/0.4 ML SYRINGE SUB-Q (08:47)
--- NOTE | 2020-09-14 09:29 | WPDHPUPDATE1 ---
History and Physical Update Update Date/Time: 09/14/20 09:29 History and Physical has been reviewed, including an updated exam of the patient. There are changes in the patient's condition. Patient's pancreatitis is gradually resolving and her lipase is down to around 700 today. Therefore, I believe it is safe to proceed with a laparoscopic cholecystectomy since it appears that the most likely reason for her new onset pancreatitis which was passage of a gallstone from the stones within her gallbladder. She also has signs of acute cholecystitis on several of her initial imaging. Her white count however has been normal now that she has been on IV antibiotics. She understands that she has increased risk of open cholecystectomy since she has been having intermittent abdominal pain for 2 weeks. Hopefully she just has chronic cholecystitis with cholelithiasis and passed a stone but if she has severe acute cholecystitis it may be a difficult surgery. She understands this. Risks, benefits, and alternatives have been discussed and questions answered. Patient agrees to proceed with procedure.
--- NOTE | 2020-09-14 10:56 | PM.IMPN ---
Progress Note: A&P Assessment and Plan (1) Acute pancreatitis: Qualifiers: Acute pancreatitis complication: no infection or necrosis Pancreatitis type: biliary Qualified Code(s): K85.10 - Biliary acute pancreatitis without necrosis or infection Code(s): K85.90 - Acute pancreatitis without necrosis or infection, unspecified Status: Acute Assessment and Plan: Lipase [address] abdomen/pelvis showed acute interstitial pancreatitis with associated intrahepatic and extrahepatic biliary duct dilatation. This is related to cholelithiasis. Triglycerides within normal limits. She is not on any medications. Denies excessive alcohol use. Lipase improved to 763 today. Epigastric pain has resolved. She has been tolerating clear liquid diet General surgery and Gastroenterology have been consulted. Input is appreciated. NPO diet prior to surgery. Analgesics and antiemetics as needed (2) Cholelithiasis: Code(s): K80.20 - Calculus of gallbladder without cholecystitis without obstruction Status: Acute Assessment and Plan: Right upper quadrant ultrasound shows cholelithiasis with gallbladder wall thickening and mild biliary dilatation. MRCP performed 09/12 showed biliary duct dilatation without any visible choledocholithiasis. Also showed distended gallbladder with wall thickening consistent with acute cholecystitis. Plan for laparoscopic cholecystectomy today per General surgery. Currently NPO (3) Cholecystitis: Code(s): K81.9 - Cholecystitis, unspecified Status: Acute Assessment and Plan: As above. Laparoscopic cholecystectomy today Continue IV Zosyn, started on 09/13/2019. Further antibiotic management per General surgery Gastroenterology (4) Transaminitis: Code(s): R74.01 - Elevation of levels of liver transaminase levels Status: Acute Assessment and Plan: Likely related to cholelithiasis/cholecystitis. Total bilirubin has improved. LFTs remain elevated. Hepatitis panel is negative. Trend LFTs Appreciate GI and surgery input (5) Morbid obesity with BMI of 45.0-49.9, adult: Code(s): E66.01 - Morbid (severe) obesity due to excess calories; Z68.42 - Body mass index [BMI] 45.0-49.9, adult Status: Acute Assessment and Plan: Discussed importance of healthy lifestyle and dietary changes to promote weight loss. (6) Hypercholesteremia: Code(s): E78.00 - Pure hypercholesterolemia, unspecified Status: Acute Assessment and Plan: Lipid panel evaluated in light of pancreatitis which showed a total cholesterol of 283. She has good HDL levels at 102. LDL is desirable at <130. Triglycerides within normal limits. She will need outpatient follow-up with PCP. Subjective Date/time seen: 09/14/20 10:56 Interval history: Date of service: 09/14/2020 Irma Moane is a healthy 25-year-old female who is seen in follow-up for pancreatitis with intrahepatic and extrahepatic biliary duct dilation with cholelithiasis. She is feeling pretty well today. She denies any abdominal pain, epigastric pain, or right upper quadrant pain. Planning for surgery this afternoon. She was tolerating clear liquids yesterday without difficulty. She was having diarrhea yesterday that she described as a is watery, yellowish stool. She has not had any further loose stools today. Denies nausea or vomiting. No shortness breath, cough, chest pain. Denies dizziness, lightheadedness, weakness, fever, or chills. All questions were answered regarding plan of care. Her mother was present at the bedside during interview and examination. Review of Systems Review of Systems: All systems reviewed & are unremarkable except as noted in HPI and below Exam Narrative: Exam Narrative: is an obese, well-appearing 25-year-old female who is lying supine in bed. She appears comfortable and i
--- NOTE | 2020-09-14 12:52 | PC.NURSE ---
To OR per stretcher, IV SL 22 LT HAND. Faxed [facility] (left on chart). Mom at bedside.
[2020-09-14] MEDS: LACTATED RINGERS 1,000 ML 30 ML IV CONT (13:30)
--- NOTE | 2020-09-14 13:38 | WPDANESEPPF ---
Anes - Initial Pre Proc Eval Procedure: Operation Date: 09/14/20 14:00 Proposed Procedures p Laparoscopic Cholecystectomy With Intraoperative Cholangiograms,Possible Open. - Sree Lipscomb MD Date/Time: 09/14/20 13:38 Surgeon: Romana Barfield PA-C Pre Op Diagnosis: pancreatitis, gallstones Patient Data Age: 25 Gender: F Height: 5 ft 4 in Weight: 119.6 kg Last Vital Signs Temp 36.9 C 09/14/20 13:02 Pulse 72 09/14/20 13:02 Resp 16 09/14/20 13:02 BP 137/84 09/14/20 13:02 Pulse Ox 99 09/14/20 13:02 Allergies Allergy/AdvReac Type Severity Reaction Status Date / Time No Known Allergies Allergy Verified 09/11/20 19:54 Home Medications Medication Instructions Recorded Confirmed Type norethindrone-e.estradiol-iron 1 tablet PO DAILY 09/11/20 09/12/20 History [[place]is[place] 24 Fe] Laboratory Tests 09/14/20 09/14/20 09/14/20 05:18 05:19 10:33 WBC 5.7 K/mm3 K/mm3 (4.5-10.0) RBC 4.40 M/mm3 M/mm3 (4.2-5.4) Hgb 12.3 g/dL g/dL (12.0-15.0) Hct 37.9 % % (37.0-47.0) MCV 86.1 fl fl (80-100) MCH 28.0 pg pg (26-34) MCHC 32.5 g/dl g/dl (32-36) RDW 12.5 % % (11.5-14.5) Plt Count 254 k/mm3 k/mm3 (150-375) MPV 10.4 fl fl (7.4-10.4) Sodium 138 mmol/L mmol/L (137-145) Potassium 3.6 mmol/L mmol/L (3.4-5.0) Chloride 106 mmol/L mmol/L (98-107) Carbon Dioxide 26 mmol/L mmol/L (22-30) Anion Gap 6 mmol/L L mmol/L (8-16) BUN 8 mg/dL mg/dL (7-17) Creatinine 0.80 mg/dL mg/dL (0.7-1.0) Estim Creat Clear Calc 120 ml/min ml/min Estimated GFR > 60 (59 - ) Glucose 80 mg/dL mg/dL (65-105) Calcium 9.4 mg/dL mg/dL (8.4-10.2) Total Bilirubin 1.7 mg/dL H mg/dL (0.2-1.3) AST 293 U/L H U/L (14-36) ALT 622 U/L H U/L (4-35) Alkaline Phosphatase 263 U/L H U/L (38-126) Total Protein 7.0 g/dL g/dL (6.3-8.2) Albumin 4.1 g/dL g/dL (3.5-5.1) Lipase 763 U/L H U/L (23-300) Blood Type O Positive Antibody Screen Negative Patient hx anesthesia problems: none Family hx anesthesia problems: none PMFSH Past Medical History Medical History Abdominal pain Cholecystitis Gallstone pancreatitis Healthy female adult Surgical History Surgical History History of sinus surgery History of tonsillectomy Family History Family History Sibling Brain tumor Grandparent Gallbladder disease Social History Social History Smoking status: Never smoker Alcohol intake: current Alcohol use details: Occasional/social. Not daily use. Substance use: current Substance use type: marijuana Other substance usage details: Weekly use of marijuana Occupation/Education: occupation Additional occupation/education comments: [employer] Gender identity (if verbalized by the patient): Female Sexual Orientation (if Verbalized by the Patient): Straight or Heterosexual Spiritual care concerns: No Anes - Eval Final PreProcedure Day of Procedure 09/14/20 13:38 Patient weight: morbidly obese Heart: regular rate and rhythm Lungs: clear to auscultation Airway: Mallampati scale class II Neurological: alert and oriented Last oral intake: >/= 8 hours ASA classification: III Emergent: no Anesthetic plan: proceed Anesthesia type and monitoring: general ETT and standard monitoring Informed Consent: The patient's anesthetic plan and its attendant risks and benefits were discussed with the patient/family/POA. Questions were solicited and an
[2020-09-14] MEDS: SCOPOLAMINE 1.5 MG PATCH TRANSDERM (13:48)
[2020-09-14] MEDS: BUPIVACAINE/EPINEPHRINE 0.5% 30 ML VIAL INFILTRATE (14:32)
--- NOTE | 2020-09-14 15:46 | P.OP_ITS ---
Procedure Note - Detailed Date of procedure: 09/14/20 Pre-op diagnosis: pancreatitis, gallstones Acute on chronic cholecystitis with cholelithiasis Post-op diagnosis: same Procedure performed: Laparoscopic cholecystectomy with intraoperative cholangiogram. Description of procedure: Procedure Details: Patient was seen preoperatively in the holding area and risks, benefits and alternatives confirmed. Patient was taken to the operating room and general anesthesia was induced. A time out was then preformed with the surgery team confirming patient and site of surgery. The abdomen was prepped and draped in the usual sterile fashion. Incision was made just below the umbilicus. Two stay sutures of O- Vicryl were used to elevate the mid-line fascia beneath the umbilicus and a small incision was made under direct vision. The peritoneum was entered. The 12 mm Shah cannula was introduced under direct vision. First under low flow and then under high flow the abdomen was insufflated with carbon dioxide never exceeding a pressure of 14. Careful inspection of the lower abdomen revealed no hernias. It appeared that she had a little bit of weakness at the umbilicus but we made our incision in the fascia just superior to this while placing the above Beena cannula. Three 5 mm trocars were then introduced under direct vision. The following trocars were introduced under direct vision: a 5 mm in the epigastrium and two 5 mm trocars along the right costal margin. The gall bladder was grasped and the cystic duct and artery were dissected free and clipped with an 5 mm endo-clip carpenter maintenance. A small hole was made in the cystic duct with endoshears and a cholagio-cath introduced. A cholangiogram was obtained revealing free flow into the cystic duct, common bile duct, common hepatic, right and left hepatic ducts with free flow into the duodenum with no filling defects in the intra nor extrahepatic biliary tree and no dilation. The cystic duct was noted to be fairly long and parallel to the common duct inferiorly. The catheter was removed and the cystic duct was clipped with a 5 mm endoclip-carpenter maintenance. The cystic duct was then transected. The cystic artery was also transected at this point. The gall bladder was removed using electrocautery and then removed using an endobag via the umbilical incision. The trocars were removed visualizing hemostasis and the remaining gas evacuated. The large trocar site at the umbilicus was closed with an 0 vicryl figure of 8 suture. The 2 stay sutures mentioned above on either side of the fascia were also tied together to help approximate this midline fascia. Further local anesthetic was placed into each incision for postop pain control. The skin incisions were closed with a subcuticular of 4-0 Monocryl. Surgical glue then was applied to all the incisions. Patient tolerated the procedure well was taken to the recovery room in good condition. Implants: none Anesthesia: GETA Surgeon: Sree Lipscomb MD Auto Fleet Manager: Az LANDRUM, OR educational program assistant Estimated blood loss (mL): 25 Drains: No Packing: No Pathology: yes (The gallbladder) Complications: No immediate complications Condition: stable Disposition: PACU Findings: Somewhat thickened gallbladder with a few adhesions at the neck of the gallbladder and surrounding the triangle of Calot Mild edema in the gallbladder wall upon dissection.
[2020-09-14] MEDS: ONDANSETRON INJ 4 MG/2 ML VIAL IV PUSH (16:22)
[2020-09-14] MEDS: fentaNYL CITRATE INJ (*CRX) 100 MCG/2 ML VIAL 25 MCG IV PUSH ×2 (16:22→16:44)
[2020-09-14] MEDS: SENNA/DOCUSATE SODIUM TABLET 2 TAB PO (20:19)
[2020-09-14] MEDS: HYDROcodone/acetaminophen (*CRX) 5-325 MG TABLET 1 TAB PO (23:51)
[2020-09-15] VITALS: BP 122/79; PULSE 90; RESP 16; TEMP 36.5; O2SAT 98
[2020-09-15 04:00] VITALS: BP 118/68; PULSE 82; RESP 18; TEMP 36.6; O2SAT 96
[2020-09-15] MEDS: HYDROcodone/acetaminophen (*CRX) 5-325 MG TABLET 1 TAB PO ×2 (06:03→11:58)
[2020-09-15 06:33] LABS: Hematocrit 35.8 % (37.0-47.0); Hemoglobin 11.9 g/dL (12.0-15.0); Mean Corpuscular HGB Conc 33.2 g/dl (32-36); Mean Corpuscular Hemoglobin 28.2 pg (26-34); Mean Corpuscular Volume 84.8 fl (80-100); Mean Platelet Volume 10.3 fl (7.4-10.4); Platelet Count Result 279 k/mm3 (150-375); Red Blood Count 4.22 M/mm3 (4.2-5.4); Red Cell Distribution Width 12.1 % (11.5-14.5); White Blood Count 8.1 K/mm3 (4.5-10.0)
[2020-09-15 06:43] LABS: Alanine Aminotransferase 662 U/L (4-35); Albumin Level 3.8 g/dL (3.5-5.1); Alkaline Phosphatase 219 U/L (38-126); Anion Gap 4 mmol/L (8-16); Aspartate Amino Transferase 314 U/L (14-36); Bilirubin,Total 1.1 mg/dL (0.2-1.3); Blood Urea Nitrogen 7 mg/dL (7-17); Calcium 9.1 mg/dL (8.4-10.2); Carbon Dioxide 28 mmol/L (22-30); Chloride 104 mmol/L (98-107); Estimated CRCL calculation 120 ml/min; Estimated Glomerular Filt Rate > 60; Glucose 91 mg/dL (65-105); Lipase 410 U/L (23-300); Potassium 3.9 mmol/L (3.4-5.0); Sodium 136 mmol/L (137-145)
[2020-09-15] MEDS: ENOXAPARIN 40 MG/0.4 ML SYRINGE SUB-Q (08:15)
[2020-09-15 08:21] VITALS: BP 131/68; PULSE 79; RESP 18; TEMP 36.3; O2SAT 98
--- NOTE | 2020-09-15 09:01 | PM.PNGS ---
Progress Note: A&P Assessment and Plan (1) Gallstone pancreatitis: Code(s): K85.10 - Biliary acute pancreatitis without necrosis or infection Status: Acute Assessment and Plan: doing well status post laparoscopic cholecystectomy yesterday. Intraoperative cholangiogram was negative for any residual stones in the bile duct. Pancreatitis is resolving. Okay to discharge from surgical standpoint. Instructions were given. Follow-up with Dr. Lipscomb in 2 weeks. Subjective Subjective Date/Time Seen: 09/15/20 09:01 Post Op day: 1 Patient reports: no new complaints, pain is less, tolerating liquids well and afebrile Review of Systems Review of Systems: All systems reviewed & are unremarkable except as noted in HPI and below Constitutional: Constitutional: Denies headache(s) Cardiovascular: Cardiovascular: Denies chest pain and Denies dyspnea Respiratory: Respiratory: Denies cough and Denies dyspnea Gastrointestinal: Gastrointestinal: Reports as per HPI Neurologic: Denies confusion and Denies headache(s) Exam Const: General: comfortable and no acute distress; No confusion Nutritional Appearance: obese Orientation/consciousness: patient oriented x3 and No confusion GI: Inspection: non-distended, incision (All incisions healing well) and obesity GI Palp: Yes Soft to palpation, Yes Tenderness to palpation present (GI) ( appropriate incisional tenderness upper abdomen), No Guarding due to palpation present (GI) and No Rebound tenderness present Auscultation: normal bowel sounds Neuro: General: patient oriented x3, no focal motor deficits and No confusion Extrem: General: no calf tenderness and no edema Psych: Affect: normal affect Insight: Good insight present (Psych) Judgement: Good judgement present (Psych) Objective Data Vital Signs Vital Signs: Vital Signs - 24 hr 09/14/20 11:46 09/14/20 13:02 09/14/20 15:44 Temperature 36.8 C 36.9 C 36.7 C Pulse Rate 71 72 67 Respiratory Rate 16 16 16 Blood Pressure 135/72 137/84 159/105 H Pulse Oximetry 99 99 100 09/14/20 16:00 09/14/20 16:15 09/14/20 16:30 Temperature Pulse Rate 58 L 62 64 Respiratory Rate 16 16 14 Blood Pressure 152/101 H 154/82 H 152/96 H Pulse Oximetry 100 98 72 L 09/14/20 16:49 09/14/20 17:05 09/14/20 17:24 Temperature 36.4 C Pulse Rate 66 68 71 Respiratory Rate 15 16 16 Blood Pressure 148/86 H 140/87 140/89 Pulse Oximetry 97 99 99 09/14/20 17:39 09/14/20 18:09 09/14/20 19:09 Temperature 36.6 C 36.6 C 36.3 C L Pulse Rate 69 67 84 Respiratory Rate 16 20 16 Blood Pressure 134/83 132/84 122/58 L Pulse Oximetry 97 97 99 09/14/20 20:00 09/15/20 00:00 09/15/20 04:00 Temperature 36.4 C 36.5 C 36.6 C Pulse Rate 80 90 82 Respiratory Rate 18 16 18 Blood Pressure 138/83 122/79 118/68 Pulse Oximetry 99 98 96 09/15/20 08:21 Temperature 36.3 C L Pulse Rate 79 Respiratory Rate 18 Blood Pressure 131/68 Pulse Oximetry 98 Intake/Output Intake/Output: Intake & Output 09/12/20 09/13/20 09/14/20 09/15/20 23:59 23:59 23:59 23:59 Intake Total 2390 3360 1460 450 Output Total 580 1850 650 Balance 1810 1510 810 450 Meds/Results Medications: Active Medications Generic Name Dose Route Start Last Admin Trade Name Freq PRN Reason Stop Dose Admin Acetaminophen 650 mg 09/13/20 09:01 Acetaminophen 325 Mg Tablet PO Q4H PRN Pain 1-3 Hydrocodone Bitart/Acetaminophen 1 tab 09/14/20 17:24 09/15/20 06:03 Hydrocodone/Acetaminophen (*Crx) 5-325 Mg Tablet PO 1 tab Q4H PRN Administration Pain Rated 4-6 Hydrocodone Bitart/Acetaminophen 1 tab 09/14/20 17:24 Hydrocodone/Acetaminophen (*Crx) 7.5-325 Mg Tablet PO Q6H PRN Pain Rated 7-10 Diphenhydramine HCl 25 mg 09/14/20 17:24 Diphenhydramine Hcl Inj 50 Mg/Ml Vial IV PUSH Q6H PRN Itching Enoxaparin Sodium 40 mg 09/12/20 09:00 09/14/20 08:47 Enoxaparin 40 Mg/0.4 Ml Syringe SUB-Q 40 mg
--- NOTE | 2020-09-15 11:41 | PM.DS ---
DS: Admitting Diagnosis Admitting Diagnosis Admitting Diagnosis: Pancreatitis DS: Discharge Diagnosis Discharge Diagnosis (1) Acute pancreatitis: Qualifiers: Acute pancreatitis complication: no infection or necrosis Pancreatitis type: biliary Qualified Code(s): K85.10 - Biliary acute pancreatitis without necrosis or infection Code(s): K85.90 - Acute pancreatitis without necrosis or infection, unspecified Status: Acute Assessment and Plan: Lipase [address] abdomen/pelvis showed acute interstitial pancreatitis with associated intrahepatic and extrahepatic biliary duct dilatation. This is related to cholelithiasis. Triglycerides within normal limits. She is not on any medications. Denied excessive alcohol use. Lipase levels slowly improved. Epigastric pain resolved. Diet was advanced and she was able to tolerate a low-fat diet. She will follow-up with gastroenterology and general surgery. (2) Cholelithiasis: Code(s): K80.20 - Calculus of gallbladder without cholecystitis without obstruction Status: Acute Assessment and Plan: Right upper quadrant ultrasound showed cholelithiasis with gallbladder wall thickening and mild biliary dilatation. MRCP performed 09/12 showed biliary duct dilatation without any visible choledocholithiasis. Also showed distended gallbladder with wall thickening consistent with acute cholecystitis. She underwent laparoscopic cholecystectomy on 09/14/[address] Lipscomb. She tolerated the procedure well and pain was well controlled. Diet was advanced and she was able to tolerate low-fat diet, which she should continue. She will follow-up with Dr. Lipscomb in 2 weeks. (3) Cholecystitis: Code(s): K81.9 - Cholecystitis, unspecified Status: Acute Assessment and Plan: As above. She received IV Zosyn during stay. Underwent laparoscopic cholecystectomy as above. General surgery follow-up as described above. (4) Transaminitis: Code(s): R74.01 - Elevation of levels of liver transaminase levels Status: Acute Assessment and Plan: Likely related to cholelithiasis/cholecystitis. Hepatitis panel negative. Total bilirubin normalized. LFTs remained elevated but anticipate further improvement postoperatively. She has gastroenterology follow-up scheduled in 2 weeks and this can be monitored. (5) Morbid obesity with BMI of 45.0-49.9, adult: Code(s): E66.01 - Morbid (severe) obesity due to excess calories; Z68.42 - Body mass index [BMI] 45.0-49.9, adult Status: Acute Assessment and Plan: Discussed importance of healthy lifestyle and dietary changes to promote weight loss. (6) Hypercholesteremia: Code(s): E78.00 - Pure hypercholesterolemia, unspecified Status: Acute Assessment and Plan: Lipid panel evaluated in light of pancreatitis which showed a total cholesterol of 283. She has good HDL levels at 102. LDL is desirable at <130. Triglycerides within normal limits. She will need outpatient follow-up with PCP. DS: Summary Hospital Course Reason for hospitalization: Acute pancreatitis Hospital Course: Date of admission: 09/11/2020 Date of discharge: 09/15/2020 Irma Monae is an obese 25-year-old female without any significant prior medical history who presented to the emergency department on 09/11/2020 with complaints of epigastric pain ongoing for several days that worsened with eating and drinking and associated nausea and vomiting. Upon presentation to the emergency department, her blood pressure was elevated at 140 3/93 with additional vital signs stable, CBC and BMP unremarkable, and CT abdomen/pelvis demonstrated acute interstitial pancreatitis with intrahepatic and extrahepatic biliary duct dilatation and cholelithiasis. She was admitted to the hospitalist service for further evaluation management seen in consultation by General surgery and Gastroenterol
[2020-09-15 11:53] VITALS: BP 135/77; PULSE 84; RESP 18; TEMP 36.4; O2SAT 99
== END 2020-09-15 14:05 | disposition home or self-care (01) | DRG 417 ==
LOC: ANHED 21:29 → ANH3MEDSUR 09-12 07:59
PROVIDERS: Emergency Medicine; Internal Medicine Gastroenterology; Nurse Practitioner Family; Physician Assistant; Surgery; Admitting Provider Family Medicine; Emergency Provider Emergency Medicine; PCP Nurse Practitioner Family; Visit Provider Internal Medicine
PROC: 0FT44ZZ Resection of Gallbladder, Percutaneous Endoscopic Approach (ICD-10-PCS; CPT 47562; principal; 2020-09-14 14:00)
DX: K80.00 Calculus of gallbladder with acute cholecystitis without obstruction (principal); K85.10 Biliary acute pancreatitis without necrosis or infection; Z68.42 Body mass index [BMI] 45.0-49.9, adult; E66.01 Morbid (severe) obesity due to excess calories; E78.00 Pure hypercholesterolemia, unspecified
CPT/HCPCS: 36415; 74177; 74183; 74300; 76376; 76705; 80048; 80053; 80061; 80074; 81001; 81025; 82247; 83690; 83735; 84075; 84450; 84460; 85025; 85027; 86850; 86900; 86901; 87086; 87088; 88304; 96361; 96374; 96375; 99285; A9270; A9577; J0131; J1100; J1170; J1650; J2250; J2270; J2405; J2543; J2704; J3010; J7030; J7120; Q9966; Q9967